=== PATIENT | female | born 1990 | race Hispanic/Latino ===

== ENCOUNTER 2017-04-20 23:58 | Emergency (ER) | payer SELFPAY ==
[2017-04-20 23:58] VITALS: BMI 21.5
--- NOTE | 2017-04-21 00:08 | ED PDOC ---
HPI: Psych/Substance Abuse Time Seen by Provider: 04/21/17 00:06 Chief Complaint (Nursing): Alcohol Ingestion Chief Complaint (Provider): etoh History Per: Patient, Other (PD) Additional History Per: Patient, Law Enforcement Additional Complaint(s): 27 y/o female presents to ED escorted by police for eval of alcohol intoxication. Patient was in taxi cab but did not have keys to get in to her apartment. Patient denies acute medical or psychiatric complaints. Past Medical History Reviewed: Historical Data, Nursing Documentation, Vital Signs Vital Signs: Last Vital Signs Temp 98.7 F 04/20/17 23:59 Pulse 120 H 04/20/17 23:59 Resp 16 04/20/17 23:59 BP 126/74 04/20/17 23:59 Pulse Ox 99 04/20/17 23:59 - Medical History PMH: No Chronic Diseases - Surgical History Surgical History: No Surg Hx - Family History Family History: States: Unknown Family Hx - Allergies Allergies/Adverse Reactions: Allergies Allergy/AdvReac Type Severity Reaction Status Date / Time No Known Allergies Allergy Verified 04/20/17 23:59 Review of Systems ROS Statement: Except As Marked, All Systems Reviewed And Found Negative Physical Exam - Reviewed Nursing Documentation Reviewed: Yes Vital Signs Reviewed: Yes - Physical Exam Appears: Positive for: Well, Non-toxic, No Acute Distress Head Exam: Positive for: ATRAUMATIC, NORMAL INSPECTION, NORMOCEPHALIC Skin: Positive for: Normal Color Eye Exam: Positive for: Normal appearance Cardiovascular/Chest: Positive for: Regular Rate, Rhythm Respiratory: Positive for: Normal Breath Sounds Gastrointestinal/Abdominal: Positive for: Normal Exam Back: Positive for: Normal Inspection Neurologic/Psych: Positive for: Alert, Oriented (x1), Other (+slurred speech, + AOB) - ECG O2 Sat by Pulse Oximetry: 99 - Progress ED Course And Treament: accucheck 2:45 Patient awake, alert, oriented x3. Ambulating steady gait. Stable for discharge. Disposition - Clinical Impression Clinical Impression: Alcohol intoxication - Patient ED Disposition Is Patient to be Admitted: No Counseled Patient/Family Regarding: Studies Performed, Diagnosis, Need For Followup - Disposition Disposition: Routine/Home Disposition Time: 02:47 Condition: STABLE Instructions: Alcohol Intoxication (ED)
[2017-04-21 00:09] VITALS: BP 126/74; PULSE 120; RESP 16; TEMP 98.7; O2SAT 99
== END 2017-04-21 03:14 | disposition home or self-care (01) ==
LOC: H.ER 23:58
DX: F10.129 Alcohol abuse with intoxication, unspecified (principal)